=== PATIENT | female | born 1985 | race Caucasian/White ===

== ENCOUNTER 2018-02-24 21:20 | Emergency (ER) | payer OTHER ==
[2018-02-24 21:30] VITALS: BP 111/75; PULSE 78; RESP 18; TEMP 98.6
--- NOTE | 2018-02-24 21:48 | ED ---
Lower Extremity Injury HPI - General Chief Complaint: Extremity Injury, Lower Stated Complaint: Rt ankle injury Time Seen by Provider: 02/24/18 21:32 Source: patient, RN notes reviewed Mode of arrival: wheelchair Limitations: no limitations - History of Present Illness Initial Comments: This is a 32-year-old female who presents to the emergency department with chief complaint of right ankle injury. Patient states that at 3:30 AM this morning she tripped on a toy, her right ankle twisted inward and she fell to the ground. She states that she felt a "" sensation. She states that she stayed on the ground until this morning. She states that she was unable to bear weight on the right ankle and has been hopping on the left leg. She reports pain to both sides of the ankle. Denies any other injuries or trauma. Denies fever, chills, chest pain, shortness of breath, abdominal pain, nausea or vomiting, numbness or tingling, headache or vision changes. - Related Data Previous Rx's Medication Instructions Recorded Naproxen [Naprosyn] 500 mg PO Q12HR PRN #20 tab 05/27/15 Allergies Allergy/AdvReac Type Severity Reaction Status Date / Time cefaclor [From Ceclor] Allergy Rash/Hives Verified 02/24/18 21:30 hydromorphone HCl Allergy Dyspnea Verified 02/24/18 21:30 [From Dilaudid] Review of Systems ROS Statement: Those systems with pertinent positive or pertinent negative responses have been documented in the HPI. ROS Other: All systems not noted in ROS Statement are negative. Past Medical History Past Medical History: Asthma, Hypertension History of Any Multi-Drug Resistant Organisms: None Reported Past Surgical History: Section, Cholecystectomy Additional Past Surgical History / Comment(s): ECTOPIC , KIDNY STONES WITH STENT INSERTED Past Psychological History: Depression Smoking Status: Current every day smoker Past Alcohol Use History: None Reported Past Drug Use History: None Reported General Exam - General Exam Comments Initial Comments: General: Awake and alert, well-developed; in no apparent distress. HEENT: Head atraumatic, normocephalic. Pupils are equal, round and reactive to light. Extraocular movements intact. Oropharynx moist without erythema or exudate. Neck: Supple. Normal ROM. Cardiovascular: Regular rate and rhythm. No murmurs, rubs or gallops. Chest symmetrical. Respiratory: Lungs clear to auscultation bilaterally. No wheezes, rales or rhonchi. Normal respiratory effort with no use of accessory muscles. Musculoskeletal: Limited range of motion with flexion and extension of the right ankle due to pain. There is localized soft tissue swelling and tenderness to the lateral malleolus. Tenderness on palpation of medial malleolus. Sensation is intact. Pedal pulses are 2+ equal and palpable bilaterally. Skin: [place], warm and dry without rashes or lesions. Neurological: Alert and oriented x3. CN II-XII grossly intact. Speech is fluent and answers are appropriate. No focal neuro deficits. Psychiatric: Normal mood and affect. No overt signs of depression or anxiety noted. Limitations: no limitations Course Vital Signs 02/24/18 21:29 Temperature 98.6 F Pulse Rate 78 Respiratory 18 Rate Blood Pressure 111/75 O2 Sat by Pulse 98 Oximetry Medical Decision Making - Medical Decision Making This is a 32-year-old female who presents to the emergency department with chief complaint of right ankle injury. Patient reports twisting her ankle last night after tripping on a toy. She has not been bearing weight or ambulating. There is tenderness and localized soft tissue swelling to the lateral malleolus. Tenderness to the medial malleolus. No obvious gross deformities. An x-ray was obtained which revealed soft tissue swelling. No evidence of fractures. Patient provided with an ankle stirrup splint and a prescription for crutches. Recommended rest, ice, elevation and anti-inflammatories as needed. Patient is in no acute distress and will be discharged home at this time. She is in agreement with plan and voices understanding. All questions were answered. - Radiology Data Radiology results: report reviewed, image reviewed X-ray right ankle impression: Soft tissue swelling. No fracture. Disposition Clinical Impression: Ankle sprain and strain Disposition: HOME SELF-CARE Condition: Good Instructions: Ankle Sprain (ED) Additional Instructions: Please follow up with primary care provider and/or orthopedics within 7-10 days if pain persists. Please rest, ice, elevate and take Tylenol or Motrin as needed. Bear weight as tolerated. Please follow up with primary care provider within 1-2 days. Return to emergency department if symptoms should worsen or any concerns arise. Is patient prescribed a controlled substance at d/c from ED?: No Referrals: None,Stated [Primary Care Provider] - 1-2 days Devin Pickens MD [Medical Doctor] - 1-2 days Time of Disposition: 22:15
--- NOTE | 2018-02-24 22:03 | XR ---
EXAMINATION TYPE: XR ankle complete RT DATE OF EXAM: 02/24/2018 COMPARISON: 09/03/2011 HISTORY: Ankle pain and swelling TECHNIQUE: 3 views FINDINGS: There is soft tissue swelling over the lateral malleolus. I see no fracture nor dislocation . Joint spaces are normal. IMPRESSION: Soft tissue swelling. No fracture.
== END 2018-02-24 22:23 | disposition home or self-care (01) ==
LOC: EC 21:20
DX: S96.911A Strain of unspecified muscle and tendon at ankle and foot level, right foot, initial encounter (principal); S93.401A Sprain of unspecified ligament of right ankle, initial encounter; F17.200 Nicotine dependence, unspecified, uncomplicated; Z88.1 Allergy status to other antibiotic agents; Z88.5 Allergy status to narcotic agent; X50.1XXA Overexertion from prolonged static or awkward postures, initial encounter
CPT/HCPCS: 99283